=== PATIENT | female | born 1940 | race Caucasian/White ===

== ENCOUNTER 2021-06-08 14:13 | Emergency (ER) | payer OTHER ==
[~2021-06-08] VITALS: Ht 167.6 cm; Wt 59.0 kg
[2021-06-08 15:56] LABS: Urine Bacteria NONE SEEN /hpf (None Seen); Urine Blood Negative /uL (Negative); Urine Specific Gravity 1.012 (1.001-1.035); Urine WBC 4 /hpf (0 - 5)
[2021-06-08 16:24] LABS: Basophils # (auto) 0.1 10 ^3/uL (0-0.2); Basophils % (auto) 0.7 % (0.0-2.0); Eosinophils # (auto) 0.7 10 ^3/uL (0-0.8); Eosinophils % (auto) 8.8 % (0.0-7.0); Hematocrit 40.7 % (36.0-46.0); Hemoglobin 13.3 g/dL (12.2-16.2); Lymphocytes % (auto) 24.4 % (10.0-50.0); Mean Corpuscular Hemoglobin 30.8 pg (28.0-32.0); Mean Corpuscular Hgb Conc. 32.7 g/dL (32.0-36.0); Mean Corpuscular Volume 94.2 fL (80.0-100.0); Monocytes # (auto) 1.1 10 ^3/uL (0-1.3); Monocytes % (auto) 13.2 % (0.0-12.0); Neutrophils # (auto) 4.4 10 ^3/uL (1.6-8.6); Neutrophils % (auto) 52.9 % (37.0-80.0); Nucleated Red Blood Cells % 0.1 %; Red Blood Cells 4.32 10^6/uL (4.0-5.20); Red Cell Distribution Width 15.6 % (11.8-14.3); White Blood Cell 8.2 10^3/uL (4.4-10.8)
[2021-06-08 16:49] LABS: Calcium 9.5 mg/dL (8.5-10.1); Potassium 5.1 mmol/L (3.5-5.1)
[2021-06-08 16:53] LABS: Albumin 3.5 g/dL (3.4-5.0); BUN/Creatinine Ratio 21.2
[2021-06-08 16:59] LABS: Bilirubin, Total 0.5 mg/dL (0.2-1.0); Total Protein 7.3 g/dL (6.4-8.2)
[2021-06-09 04:07] VITALS: BP 139/63
[2021-06-11] MEDS ORDERED: ACET650S12 RE (11:17)
[2021-06-11] MEDS ORDERED: LEVO25TA49 PO (11:17)
[2021-06-11] MEDS ORDERED: AMLO-496 PO (11:17)
[2021-06-11] MEDS ORDERED: FURO20TA3 PO (11:17)
[2021-06-11] MEDS ORDERED: ATOR40TA52 PO (11:17)
[2021-06-11] MEDS ORDERED: CARV6.2551 PO (11:17)
[2021-06-11] MEDS ORDERED: ALEN70TA74 PO (11:17)
[2021-06-11] MEDS ORDERED: LOSA-69 PO (11:17)
== END 2021-06-09 05:46 | disposition home or self-care (01) ==
LOC: ER 14:13
DX: L01.00 Impetigo, unspecified (principal); I10 Essential (primary) hypertension; Z90.49 Acquired absence of other specified parts of digestive tract; Z20.822 Contact with and (suspected) exposure to COVID-19
CPT/HCPCS: 36415; 71045; 80053; 81001; 83880; 85025; 87426; 93005

== ENCOUNTER 2021-06-17 08:18 | Inpatient (IN) | payer OTHER ==
[~2021-06-17] VITALS: Ht 165.1 cm; Wt 73.5 kg
[~2021-06-17 08:18] MED LIST: ACET650S12 RE; ALEN70TA74 PO; AMLO-496 PO; ATOR40TA52 PO; CARV6.2551 PO; FURO20TA3 PO; LEVO25TA49 PO; LOSA-69 PO
[2021-06-17] MEDS ORDERED: TRANEXAMIC ACID 20 ML ONE (08:42)
[2021-06-17] MEDS ORDERED: EPINEPHrine HCL 1 MG/1 ML AMP ONE ×2 (08:43→09:25)
[2021-06-17] MEDS ORDERED: ceFAZolin 1GM/50ML 100 ML IV ONE (08:49)
[2021-06-17] MEDS ORDERED: MORPHINE SULF PF 2 MG/2 ML SYRG ONE (09:24)
[2021-06-17] MEDS ORDERED: MIDAZOLAM HCL 2MG/2ML 2ml VIAL (1mg/ml) ONE (09:25)
[2021-06-17] MEDS ORDERED: PROPOFOL 10 MG/ML 20 ML IV ONE ×3 (09:25→12:46)
[2021-06-17] MEDS ORDERED: fentaNYL CITRATE 100 MCG/2 ML VL ONE (09:25)
[2021-06-17] MEDS ORDERED: ONDANSETRON HCL 4 MG/2 ML VIAL ONE (09:25)
[2021-06-17] MEDS ORDERED: BUPIVACAINE/DEXTROSE MPF 0.75% 2 ML AMP IT ONE (09:25)
[2021-06-17] MEDS ORDERED: TETRACAINE 1% INJ 2 ML VIAL IJ ONE (09:57)
[2021-06-17] MEDS ORDERED: MORPHINE SULFATE 4 MG/ML SYR/VIAL IV PRN (12:15)
[2021-06-17] MEDS ORDERED: METOCLOPRAMIDE HCL 5MG/ml INJ 2ml VIAL IV PRN (12:15)
[2021-06-17] MEDS ORDERED: HYDROmorphone HCL 2 MG/ML VL IV PRN ×2 (12:15→13:45)
[2021-06-17] MEDS ORDERED: NALOXONE HCL 0.4 MG/ML VIAL IV PRN (12:15)
[2021-06-17] MEDS: VANCOMYCIN HCL 1000 MG VL ONE ×2 (12:30→14:35)
[2021-06-17] MEDS ORDERED: oxyCODONE HCL 5MG TAB PO PRN ×2 (13:45)
[2021-06-17] MEDS ORDERED: ceFAZolin 2 GM in D5W 5% 100 ML IV SCH (14:00)
[2021-06-17 17:22] VITALS: BP 120/57
[2021-06-17] MEDS ORDERED: ONDANSETRON HCL 4 MG/2 ML VIAL IV PRN (17:30)
[2021-06-17] MEDS: LOSARTAN POTASSIUM 50 MG TAB PO SCH (18:00)
[2021-06-17 19:00] VITALS: BP 109/73
[2021-06-17] MEDS: D5W/LACTATED RINGERS 1,000 ML IV SCH (19:39)
[2021-06-17] MEDS: KETOROLAC TROMETH 30 MG/ML 1ML VIAL IV SCH (19:40)
[2021-06-17] MEDS: diphenhdrAMINE HCL 50 MG/1 ML VL IV PRN (19:41)
[2021-06-17] MEDS: ACETAMINOPHEN 325 MG TAB PO SCH (19:41)
[2021-06-17 20:00] VITALS: BP 105/75
[2021-06-17 21:00] VITALS: BP 112/58
[2021-06-17 22:00] VITALS: BP_SYST 112; BP_SYST 126; BP_DIAS 58; BP_DIAS 59
[2021-06-17] MEDS: CARVEDILOL 3.125 MG TAB PO SCH (22:20)
[2021-06-17] MEDS: PREGABALIN 25 MG CAP PO SCH (22:21)
[2021-06-17] MEDS: ATORVASTATIN 20 MG TAB PO SCH (22:21)
[2021-06-17 23:00] VITALS: BP 110/62
[2021-06-18] VITALS (16 sets, daily range): BP systolic 103–142; BP diastolic 46–81
[2021-06-18] MEDS ORDERED: diphenhdrAMINE HCL 50 MG/1 ML VL ONE (01:37)
[2021-06-18] MEDS: KETOROLAC TROMETH 30 MG/ML 1ML VIAL IV SCH ×4 (01:55→18:45)
[2021-06-18] MEDS: D5W/LACTATED RINGERS 1,000 ML IV SCH ×3 (01:56→21:26)
[2021-06-18] MEDS: ACETAMINOPHEN 325 MG TAB PO SCH ×4 (01:56→18:45)
[2021-06-18 06:08] LABS: Basophils # (auto) 0 10 ^3/uL (0-0.2); Basophils % (auto) 0.1 % (0.0-2.0); Eosinophils # (auto) 0 10 ^3/uL (0-0.8); Hematocrit 32.3 % (36.0-46.0); Hemoglobin 10.8 g/dL (12.2-16.2); Lymphocytes # (auto) 0.7 10 ^3/uL (0.4-5.4); Mean Corpuscular Hemoglobin 31.3 pg (28.0-32.0); Mean Corpuscular Hgb Conc. 33.3 g/dL (32.0-36.0); Mean Corpuscular Volume 93.8 fL (80.0-100.0); Monocytes # (auto) 0.8 10 ^3/uL (0-1.3); Monocytes % (auto) 10.7 % (0.0-12.0); Neutrophils # (auto) 6.2 10 ^3/uL (1.6-8.6); Neutrophils % (auto) 80.2 % (37.0-80.0); Red Blood Cells 3.44 10^6/uL (4.0-5.20); Red Cell Distribution Width 15.4 % (11.8-14.3); White Blood Cell 7.7 10^3/uL (4.4-10.8)
[2021-06-18 06:24] LABS: BUN/Creatinine Ratio 20.3; Calcium 8.2 mg/dL (8.5-10.1); Potassium 4.6 mmol/L (3.5-5.1)
[2021-06-18] MEDS: LEVOTHYROXINE SODIUM 100 MCG TAB PO SCH (06:35)
[2021-06-18] MEDS ORDERED: ceFAZolin 2 GM in D5W 5% 100 ML IV ONE (08:15)
[2021-06-18] MEDS: CARVEDILOL 3.125 MG TAB PO SCH ×2 (10:00→21:28)
[2021-06-18] MEDS: amLODIPine BESYLATE 5 MG TAB PO SCH (10:00)
[2021-06-18] MEDS: FUROSEMIDE 20 MG TAB PO SCH (10:01)
[2021-06-18] MEDS: ASPirin 81 mg TAB PO SCH ×2 (10:01→22:00)
[2021-06-18] MEDS: PREGABALIN 25 MG CAP PO SCH ×2 (10:02→21:28)
[2021-06-18] MEDS ORDERED: ceFAZolin 2 GM in D5W 5% 100 ML IV SCH (14:00)
[2021-06-18] MEDS: LOSARTAN POTASSIUM 50 MG TAB PO SCH (18:00)
[2021-06-18] MEDS: ATORVASTATIN 20 MG TAB PO SCH (21:28)
[2021-06-18] MEDS: diphenhdrAMINE HCL 50 MG/1 ML VL IV PRN (21:28)
[2021-06-19] MEDS: ACETAMINOPHEN 325 MG TAB PO SCH ×5 (00:26→23:48)
[2021-06-19] MEDS: KETOROLAC TROMETH 30 MG/ML 1ML VIAL IV SCH ×5 (00:26→23:48)
[2021-06-19 05:00] VITALS: BP 111/58
[2021-06-19] MEDS: D5W/LACTATED RINGERS 1,000 ML IV SCH ×2 (05:34→16:11)
[2021-06-19] MEDS: LEVOTHYROXINE SODIUM 100 MCG TAB PO SCH (06:32)
[2021-06-19 09:00] VITALS: BP 112/55
[2021-06-19] MEDS: ASPirin 81 mg TAB PO SCH ×2 (10:00→21:45)
[2021-06-19] MEDS: FUROSEMIDE 20 MG TAB PO SCH (10:00)
[2021-06-19] MEDS: CARVEDILOL 3.125 MG TAB PO SCH ×3 (10:00→22:40)
[2021-06-19] MEDS: PREGABALIN 25 MG CAP PO SCH ×2 (10:00→21:45)
[2021-06-19] MEDS: amLODIPine BESYLATE 5 MG TAB PO SCH (10:00)
[2021-06-19 13:00] VITALS: BP 111/56
[2021-06-19 17:00] VITALS: BP 142/74
[2021-06-19] MEDS: LOSARTAN POTASSIUM 50 MG TAB PO SCH (17:16)
[2021-06-19 21:30] VITALS: BP 120/54
[2021-06-19] MEDS: ATORVASTATIN 20 MG TAB PO SCH (21:45)
[2021-06-20] MEDS: D5W/LACTATED RINGERS 1,000 ML IV SCH ×2 (04:04→11:52)
[2021-06-20 06:00] VITALS: BP 149/60
[2021-06-20] MEDS: KETOROLAC TROMETH 30 MG/ML 1ML VIAL IV SCH ×3 (06:00→16:17)
[2021-06-20] MEDS: ACETAMINOPHEN 325 MG TAB PO SCH ×3 (06:30→16:17)
[2021-06-20] MEDS: LEVOTHYROXINE SODIUM 100 MCG TAB PO SCH (07:25)
[2021-06-20 09:00] VITALS: BP 139/54
[2021-06-20] MEDS: ASPirin 81 mg TAB PO SCH (09:26)
[2021-06-20] MEDS: PREGABALIN 25 MG CAP PO SCH (09:27)
[2021-06-20] MEDS: CARVEDILOL 3.125 MG TAB PO SCH (09:27)
[2021-06-20] MEDS: FUROSEMIDE 20 MG TAB PO SCH (09:27)
[2021-06-20] MEDS: amLODIPine BESYLATE 5 MG TAB PO SCH (09:28)
[2021-06-20 13:00] VITALS: BP 131/60
[2021-06-20 16:28] VITALS: BP 149/60
[2021-06-20 17:00] VITALS: BP 168/75
[2021-06-20] MEDS: LOSARTAN POTASSIUM 50 MG TAB PO SCH (18:00)
== END 2021-06-20 20:36 | DRG 470 ==
LOC: SUR 08:18 → TELE 13:31 → TELE-WESTW 17:12
PROVIDERS: ADMIT Orthopaedic Surgery; ATTEND Orthopaedic Surgery
PROC: 8E0YXBZ Computer Assisted Procedure of Lower Extremity (ICD-10-PCS; 2021-06-17)
PROC: 0SRC069 Replacement of Right Knee Joint with Oxidized Zirconium on Polyethylene Synthetic Substitute, Cemented, Open Approach (ICD-10-PCS; principal; 2021-06-17 10:34)
DX: M17.11 Unilateral primary osteoarthritis, right knee (principal); M81.0 Age-related osteoporosis without current pathological fracture; I10 Essential (primary) hypertension; Z20.822 Contact with and (suspected) exposure to COVID-19; E78.5 Hyperlipidemia, unspecified; Z82.49 Family history of ischemic heart disease and other diseases of the circulatory system; E03.9 Hypothyroidism, unspecified
CPT/HCPCS: 36415; 73562; 80048; 85025; 86850; 86900; 86901; 97110; 97116; 97163; 97530; G0378; J0171; J0690; J1885; J2250; J2405; J2704; J7060

== ENCOUNTER 2021-06-27 19:49 | Inpatient (IN) | payer OTHER ==
[~2021-06-27] VITALS: Ht 162.6 cm; Wt 70.3 kg
[2021-06-27 21:15] LABS: Hematocrit 15.8 % (36.0-46.0); Mean Corpuscular Hgb Conc. 32.5 g/dL (32.0-36.0); Mean Corpuscular Volume 95.5 fL (80.0-100.0); Red Blood Cells 1.65 10^6/uL (4.0-5.20); Red Cell Distribution Width 16.1 % (11.8-14.3); White Blood Cell 22.2 10^3/uL (4.4-10.8)
[2021-06-27 21:25] LABS: Albumin 2.1 g/dL (3.4-5.0); Calcium 7.6 mg/dL (8.5-10.1); INR 1.1 (0.9-1.15); Partial Thromboplastin Time 28.5 sec (23.6-33.0); Potassium 4.3 mmol/L (3.5-5.1)
[2021-06-27 21:27] LABS: Hemoglobin 5.1 g/dL (12.2-16.2)
[2021-06-27 21:28] LABS: Basophils % (manual) 0 (0.0-2.0); Blast Cells 0; Eosinophils % (manual) 0 (0-7); Myelocytes % 0; Promyelocytes % 0; Reactive Lymphocytes 0
[2021-06-27 21:31] LABS: BUN/Creatinine Ratio 36.1; Bilirubin, Total 0.4 mg/dL (0.2-1.0); Total Protein 5.4 g/dL (6.4-8.2)
[2021-06-27] MEDS ORDERED: PANTOPRAZOLE 40 MG/10 ML VIAL INJ IV ONE (21:45)
[2021-06-27] MEDS ORDERED: ONDANSETRON HCL 4 MG/2 ML VIAL IV ONE (21:45)
[2021-06-27 23:05] LABS: Band Neutrophils % (manual) 1; Lymphocytes % (manual) 21 (10.0-50.0); Metamyelocytes % 1; Monocytes % (manual) 5 (0-12)
[2021-06-27] MEDS ORDERED: ACETAMINOPHEN 325 MG TAB PO PRN (23:15)
[2021-06-27] MEDS ORDERED: HYDROcodone-ACET 5/325MG TAB PO PRN (23:15)
[2021-06-27] MEDS ORDERED: SODIUM CHLORIDE 0.9% 1,000 ML IV SCH (23:15)
[2021-06-27] MEDS ORDERED: DOCUSATE SOD 100 MG CAP PO PRN (23:15)
[2021-06-27] MEDS ORDERED: ONDANSETRON HCL 4 MG/2 ML VIAL IV PRN (23:15)
[2021-06-27] MEDS ORDERED: NITROGLYCERIN 0.4 MG SL TAB SL PRN (23:30)
[2021-06-27] MEDS ORDERED: MORPHINE SULFATE INJECTION 2 MG/ML SYRG IV PRN (23:30)
[2021-06-28] VITALS (13 sets, daily range): BP systolic 103–127; BP diastolic 35–54
[2021-06-28] MEDS ORDERED: cefTRIAXone 1GM/50ML D5W 50 ML IV ONE (02:00)
[2021-06-28 05:43] LABS: Hematocrit 18.1 % (36.0-46.0); Mean Corpuscular Hgb Conc. 32.5 g/dL (32.0-36.0); Red Blood Cells 1.93 10^6/uL (4.0-5.20); Red Cell Distribution Width 14.4 % (11.8-14.3)
[2021-06-28 05:46] LABS: Mean Corpuscular Hemoglobin 30.6 pg (28.0-32.0); White Blood Cell 26.5 10^3/uL (4.4-10.8)
[2021-06-28 05:52] LABS: Potassium 4.2 mmol/L (3.5-5.1)
[2021-06-28 05:57] LABS: Albumin 1.8 g/dL (3.4-5.0); BUN/Creatinine Ratio 38.2; Calcium 6.8 mg/dL (8.5-10.1)
[2021-06-28 06:00] LABS: Bilirubin, Total 0.3 mg/dL (0.2-1.0); Total Protein 4.2 g/dL (6.4-8.2)
[2021-06-28 06:20] LABS: Hemoglobin 5.9 g/dL (12.2-16.2)
[2021-06-28 06:21] LABS: Basophils % (manual) 0 (0.0-2.0); Blast Cells 0; Eosinophils % (manual) 0 (0-7); Metamyelocytes % 0; Myelocytes % 0; Promyelocytes % 0; Reactive Lymphocytes 0
[2021-06-28 08:56] LABS: Band Neutrophils % (manual) 1; Lymphocytes % (manual) 13 (10.0-50.0); Monocytes % (manual) 4 (0-12)
[2021-06-28] MEDS: MULTIPLE VITAMIN TAB PO SCH (09:47)
[2021-06-28] MEDS ORDERED: ASCORBIC ACID 500 MG TAB PO SCH (10:00)
[2021-06-28] MEDS ORDERED: ASPirin 81 mg TAB PO SCH (10:00)
[2021-06-28] MEDS ORDERED: FAMOTIDINE (10MG/ML) 2ML VL IV SCH (10:00)
[2021-06-28] MEDS ORDERED: ZINC SULFATE 220mg CAP or TAB PO SCH (10:00)
[2021-06-28] MEDS ORDERED: HEPARIN SODIUM (PORCINE) 5000 UNITS/ML 1ML VIAL SC SCH (10:00)
[2021-06-28] MEDS ORDERED: PANTOPRAZOLE 40mg/50ML NS AE 50 ML IV SCH (10:30)
[2021-06-28] MEDS: SUCRALFATE 1 GM/10 ML ORAL SUSP PO SCH ×4 (11:00→21:30)
[2021-06-28] MEDS: PANTOPRAZOLE 40 MG/10 ML VIAL INJ IV SCH ×2 (11:32→21:30)
[2021-06-28 12:40] LABS: Urine Bacteria FEW /hpf (None Seen); Urine Blood TRACE /uL (Negative); Urine Budding Yeast FEW /hpf (None Seen); Urine Hyaline Cast FEW /lpf (0 - 2); Urine Specific Gravity 1.014 (1.001-1.035); Urine WBC 419 /hpf (0 - 5); Urine WBC Clumps PRESENT /hpf (None Seen)
[2021-06-28 14:47] LABS: Hematocrit 21.3 % (36.0-46.0); Hemoglobin 7.1 g/dL (12.2-16.2)
[2021-06-29] VITALS (17 sets, daily range): BP systolic 102–127; BP diastolic 33–61
[2021-06-29 05:55] LABS: Hematocrit 16.2 % (36.0-46.0)
[2021-06-29 05:58] LABS: Mean Corpuscular Hemoglobin 32.5 pg (28.0-32.0); Mean Corpuscular Hgb Conc. 34.7 g/dL (32.0-36.0); Mean Corpuscular Volume 93.6 fL (80.0-100.0); Red Blood Cells 1.73 10^6/uL (4.0-5.20); Red Cell Distribution Width 14.8 % (11.8-14.3)
[2021-06-29 06:02] LABS: Hemoglobin 5.6 g/dL (12.2-16.2); White Blood Cell 30.8 10^3/uL (4.4-10.8)
[2021-06-29 06:04] LABS: Basophils % (manual) 0 (0.0-2.0); Blast Cells 0; Eosinophils % (manual) 0 (0-7); Metamyelocytes % 0; Myelocytes % 0; Promyelocytes % 0; Reactive Lymphocytes 0
[2021-06-29 06:07] LABS: Calcium 6.7 mg/dL (8.5-10.1); Potassium 3.9 mmol/L (3.5-5.1)
[2021-06-29 06:08] LABS: INR 0.99 (0.9-1.15); Partial Thromboplastin Time 23.1 sec (23.6-33.0)
[2021-06-29 06:09] LABS: BUN/Creatinine Ratio 50.6
[2021-06-29] MEDS: SUCRALFATE 1 GM/10 ML ORAL SUSP PO SCH ×4 (06:58→20:52)
[2021-06-29 07:47] LABS: Band Neutrophils % (manual) 7; Lymphocytes % (manual) 10 (10.0-50.0); Monocytes % (manual) 3 (0-12)
[2021-06-29] MEDS: cefTRIAXone 1GM/50ML D5W 50 ML IV SCH (09:03)
[2021-06-29] MEDS: MULTIPLE VITAMIN TAB PO SCH (09:43)
[2021-06-29] MEDS: PANTOPRAZOLE 40 MG/10 ML VIAL INJ IV SCH (09:43)
[2021-06-29 11:00] LABS: Hematocrit 19.9 % (36.0-46.0)
[2021-06-29 11:31] LABS: Hemoglobin 6.7 g/dL (12.2-16.2)
[2021-06-29] MEDS ORDERED: PANTOPRAZOLE 40mg/50ML NS AE 50 ML IV SCH (14:30)
[2021-06-29] MEDS: PANTOPRAZOLE 40mg/50ML NS AE 50 ML IV SCH ×2 (14:55→20:52)
[2021-06-29 16:32] LABS: Basophils # (auto) 0.1 10 ^3/uL (0-0.2); Basophils % (auto) 0.4 % (0.0-2.0); Eosinophils # (auto) 0.3 10 ^3/uL (0-0.8); Eosinophils % (auto) 1.3 % (0.0-7.0); Hematocrit 25.5 % (36.0-46.0); Hemoglobin 8.6 g/dL (12.2-16.2); Lymphocytes # (auto) 1.9 10 ^3/uL (0.4-5.4); Lymphocytes % (auto) 8.4 % (10.0-50.0); Mean Corpuscular Hemoglobin 30.8 pg (28.0-32.0); Mean Corpuscular Hgb Conc. 33.8 g/dL (32.0-36.0); Mean Corpuscular Volume 91.2 fL (80.0-100.0); Monocytes # (auto) 1.3 10 ^3/uL (0-1.3); Monocytes % (auto) 5.7 % (0.0-12.0); Neutrophils # (auto) 19.5 10 ^3/uL (1.6-8.6); Neutrophils % (auto) 84.2 % (37.0-80.0); Nucleated Red Blood Cells % 0.1 %; Red Blood Cells 2.79 10^6/uL (4.0-5.20); Red Cell Distribution Width 15.2 % (11.8-14.3); White Blood Cell 23.1 10^3/uL (4.4-10.8)
[2021-06-29 16:47] LABS: Albumin 1.8 g/dL (3.4-5.0); Calcium 6.9 mg/dL (8.5-10.1); Potassium 3.7 mmol/L (3.5-5.1)
[2021-06-29 16:55] LABS: % Iron Saturation 47.8 % (15-50)
[2021-06-29 16:57] LABS: BUN/Creatinine Ratio 46.5; Bilirubin, Total 0.6 mg/dL (0.2-1.0); CRP High Sensitivity 2.35 mg/dL (< 0.3); Pre Albumin 9.3 mg/dL (20.0-40.0); Total Protein 4.2 g/dL (6.4-8.2)
[2021-06-29 16:58] LABS: Ferritin 197.6 ng/mL (10-322)
[2021-06-29 17:01] LABS: Thyroid Stimulating Hormone 11.2 uIU/mL (0.358-3.74)
[2021-06-29 20:27] LABS: Lactic Acid w/Reflex 2.7 mmol/L (0.4-2.0)
[2021-06-29] MEDS: OCTREOTIDE ACETATE 100 MCG/ML VL SUBCUT SCH (20:54)
[2021-06-30] MEDS: PANTOPRAZOLE 40mg/50ML NS AE 50 ML IV SCH ×2 (02:56→12:08)
[2021-06-30 05:00] VITALS: BP 126/53
[2021-06-30] MEDS: OCTREOTIDE ACETATE 100 MCG/ML VL SUBCUT SCH ×3 (05:19→21:12)
[2021-06-30] MEDS: SUCRALFATE 1 GM/10 ML ORAL SUSP PO SCH ×4 (05:21→21:12)
[2021-06-30 06:05] LABS: Basophils # (auto) 0.1 10 ^3/uL (0-0.2); Basophils % (auto) 0.9 % (0.0-2.0); Eosinophils # (auto) 0.8 10 ^3/uL (0-0.8); Eosinophils % (auto) 5.6 % (0.0-7.0); Hematocrit 26.7 % (36.0-46.0); Hemoglobin 9.2 g/dL (12.2-16.2); Lymphocytes # (auto) 1.6 10 ^3/uL (0.4-5.4); Lymphocytes % (auto) 11.3 % (10.0-50.0); Mean Corpuscular Hemoglobin 31.1 pg (28.0-32.0); Mean Corpuscular Hgb Conc. 34.4 g/dL (32.0-36.0); Mean Corpuscular Volume 90.5 fL (80.0-100.0); Monocytes # (auto) 1.1 10 ^3/uL (0-1.3); Monocytes % (auto) 7.8 % (0.0-12.0); Neutrophils # (auto) 10.5 10 ^3/uL (1.6-8.6); Neutrophils % (auto) 74.4 % (37.0-80.0); Nucleated Red Blood Cells % 0.1 %; Red Blood Cells 2.95 10^6/uL (4.0-5.20); Red Cell Distribution Width 15.6 % (11.8-14.3); White Blood Cell 14.1 10^3/uL (4.4-10.8)
[2021-06-30 06:24] LABS: BUN/Creatinine Ratio 42.4; Calcium 7.2 mg/dL (8.5-10.1); Potassium 3.9 mmol/L (3.5-5.1)
[2021-06-30 08:00] VITALS: BP 116/49
[2021-06-30] MEDS ORDERED: LIDOCAINE VISCOUS 2% 15ML UD ONE (09:04)
[2021-06-30] MEDS ORDERED: MIDAZOLAM HCL 5 MG/ML-1ML VIAL ONE (09:05)
[2021-06-30] MEDS ORDERED: diphenhdrAMINE HCL 50 MG/1 ML VL ONE (09:05)
[2021-06-30] MEDS ORDERED: fentaNYL CITRATE 100 MCG/2 ML VL ONE (09:05)
[2021-06-30] MEDS ORDERED: SODIUM CHLORIDE 0.9% 1,000 ML IV SCH (09:15)
[2021-06-30] MEDS: cefTRIAXone 1GM/50ML D5W 50 ML IV SCH (10:00)
[2021-06-30] MEDS: MULTIPLE VITAMIN TAB PO SCH (10:01)
[2021-06-30 11:00] LABS: Free T4 (Free Thyroxine) 0.7 ng/dL (0.89-1.76)
[2021-06-30 11:01] LABS: Folate (Folic Acid) 8.11 ng/mL (5.38-24)
[2021-06-30 17:00] VITALS: BP 136/55
[2021-06-30] MEDS: PANTOPRAZOLE 40 MG TAB PO SCH (21:10)
[2021-06-30 23:13] VITALS: BP 131/55
[2021-07-01 05:00] VITALS: BP 138/65
[2021-07-01] MEDS: OCTREOTIDE ACETATE 100 MCG/ML VL SUBCUT SCH ×3 (06:02→21:56)
[2021-07-01] MEDS: SUCRALFATE 1 GM/10 ML ORAL SUSP PO SCH ×4 (06:02→21:56)
[2021-07-01 06:47] LABS: Basophils # (auto) 0.1 10 ^3/uL (0-0.2); Basophils % (auto) 0.9 % (0.0-2.0); Eosinophils # (auto) 0.7 10 ^3/uL (0-0.8); Eosinophils % (auto) 9.8 % (0.0-7.0); Hematocrit 25.6 % (36.0-46.0); Hemoglobin 8.7 g/dL (12.2-16.2); Lymphocytes # (auto) 1.3 10 ^3/uL (0.4-5.4); Lymphocytes % (auto) 18.3 % (10.0-50.0); Mean Corpuscular Hemoglobin 31.6 pg (28.0-32.0); Mean Corpuscular Hgb Conc. 34.1 g/dL (32.0-36.0); Mean Corpuscular Volume 92.5 fL (80.0-100.0); Monocytes # (auto) 0.9 10 ^3/uL (0-1.3); Monocytes % (auto) 12.8 % (0.0-12.0); Neutrophils % (auto) 58.2 % (37.0-80.0); Nucleated Red Blood Cells % 0.2 %; Red Blood Cells 2.77 10^6/uL (4.0-5.20); Red Cell Distribution Width 16.2 % (11.8-14.3); White Blood Cell 6.9 10^3/uL (4.4-10.8)
[2021-07-01 06:51] LABS: BUN/Creatinine Ratio 27.8; Calcium 7.7 mg/dL (8.5-10.1); Potassium 4.1 mmol/L (3.5-5.1)
[2021-07-01 08:00] VITALS: BP 136/63
[2021-07-01] MEDS: MULTIPLE VITAMIN TAB PO SCH (09:01)
[2021-07-01] MEDS: PANTOPRAZOLE 40 MG TAB PO SCH ×2 (09:01→21:56)
[2021-07-01 12:00] VITALS: BP 135/63
[2021-07-01 17:00] VITALS: BP 145/72
[2021-07-01 22:00] VITALS: BP 136/93
[2021-07-01] MEDS: CARVEDILOL 3.125 MG TAB PO SCH (22:08)
[2021-07-02 05:00] VITALS: BP 142/63
[2021-07-02] MEDS: OCTREOTIDE ACETATE 100 MCG/ML VL SUBCUT SCH (05:43)
[2021-07-02] MEDS: SUCRALFATE 1 GM/10 ML ORAL SUSP PO SCH ×4 (06:00→22:58)
[2021-07-02 07:06] LABS: BUN/Creatinine Ratio 18.6; Calcium 7.8 mg/dL (8.5-10.1)
[2021-07-02 09:00] VITALS: BP 134/65
[2021-07-02] MEDS: MULTIPLE VITAMIN TAB PO SCH (09:16)
[2021-07-02] MEDS: PANTOPRAZOLE 40 MG TAB PO SCH ×2 (09:16→23:01)
[2021-07-02] MEDS: CARVEDILOL 3.125 MG TAB PO SCH ×2 (09:16→23:00)
[2021-07-02 12:45] VITALS: BP 122/61
[2021-07-02 16:59] VITALS: BP 156/68
[2021-07-02 22:00] VITALS: BP 144/76
[2021-07-03 05:00] VITALS: BP 140/61
[2021-07-03] MEDS: SUCRALFATE 1 GM/10 ML ORAL SUSP PO SCH ×4 (06:57→21:24)
[2021-07-03 09:00] VITALS: BP 147/73
[2021-07-03] MEDS: PANTOPRAZOLE 40 MG TAB PO SCH ×2 (10:14→21:23)
[2021-07-03] MEDS: MULTIPLE VITAMIN TAB PO SCH (10:14)
[2021-07-03] MEDS: CARVEDILOL 3.125 MG TAB PO SCH ×2 (10:15→22:30)
[2021-07-03 13:00] VITALS: BP 134/66
[2021-07-03 17:00] VITALS: BP 141/64
[2021-07-04 05:00] VITALS: BP 153/64
[2021-07-04] MEDS: SUCRALFATE 1 GM/10 ML ORAL SUSP PO SCH ×3 (06:45→16:53)
[2021-07-04] MEDS ORDERED: LEVOTHYROXINE SODIUM 25 MCG TAB PO SCH (07:00)
[2021-07-04 09:00] VITALS: BP 144/64
[2021-07-04] MEDS: CARVEDILOL 3.125 MG TAB PO SCH (09:59)
[2021-07-04] MEDS: MULTIPLE VITAMIN TAB PO SCH (09:59)
[2021-07-04] MEDS: PANTOPRAZOLE 40 MG TAB PO SCH (09:59)
[2021-07-04 13:00] VITALS: BP 134/64
[2021-07-04 17:00] VITALS: BP 146/74
== END 2021-07-04 18:48 | DRG 378 ==
LOC: ER 19:49 → EDBD 19:49 → OVERFLOW 23:24 → CENTRAL 06-28 05:43
PROVIDERS: ADMIT Nurse Practitioner Family; ATTEND Hospitalist
PROC: 30233N1 Transfusion of Nonautologous Red Blood Cells into Peripheral Vein, Percutaneous Approach (ICD-10-PCS; 2021-06-28)
PROC: 0DB68ZX Excision of Stomach, Via Natural or Artificial Opening Endoscopic, Diagnostic (ICD-10-PCS; principal; 2021-06-30 13:40)
DX: K26.4 Chronic or unspecified duodenal ulcer with hemorrhage (principal); E87.1 Hypo-osmolality and hyponatremia; N17.9 Acute kidney failure, unspecified; D64.9 Anemia, unspecified; E88.09 Other disorders of plasma-protein metabolism, not elsewhere classified; D75.839 Thrombocytosis, unspecified; N18.31 Chronic kidney disease, stage 3a; I12.9 Hypertensive chronic kidney disease with stage 1 through stage 4 chronic kidney disease, or unspecified chronic kidney disease; K25.4 Chronic or unspecified gastric ulcer with hemorrhage; D72.829 Elevated white blood cell count, unspecified; K29.80 Duodenitis without bleeding; Z96.651 Presence of right artificial knee joint; Z20.822 Contact with and (suspected) exposure to COVID-19; Z85.3 Personal history of malignant neoplasm of breast; Z79.01 Long term (current) use of anticoagulants; Z82.49 Family history of ischemic heart disease and other diseases of the circulatory system; Z79.899 Other long term (current) drug therapy; Z90.49 Acquired absence of other specified parts of digestive tract
CPT/HCPCS: 36415; 43239; 71045; 78582; 80048; 80053; 81001; 82040; 82607; 82668; 82728; 82746; 83010; 83036; 83540; 83550; 83605; 83615; 83880; 84439; 84443; 84484; 85007; 85014; 85018; 85025; 85027; 85045; 85379; 85610; 85652; 85730; 86141; 86850; 86900; 86901; 86920; 87040; 87081; 87426; 93005; 96361; 96365; 96375; 97110; 97116; 97163; C9113; G0378; J0696; J2250; J2405; J3490

== ENCOUNTER 2021-08-28 15:06 | Inpatient (IN) | payer OTHER ==
[~2021-08-28] VITALS: Ht 167.6 cm; Wt 62.9 kg
[2021-08-28] MEDS: SODIUM CHLORIDE 0.9% 1,000 ML IV SCH (00:45)
[2021-08-28] MEDS ORDERED: IOHEXOL 350 MG/ML 100ML IJ ONE (15:20)
[2021-08-28 15:56] LABS: Basophils # (auto) 0 10 ^3/uL (0-0.2); Basophils % (auto) 0.5 % (0.0-2.0); Eosinophils # (auto) 0.3 10 ^3/uL (0-0.8); Eosinophils % (auto) 4.1 % (0.0-7.0); Hematocrit 28.9 % (36.0-46.0); Hemoglobin 9.7 g/dL (12.2-16.2); Lymphocytes % (auto) 29.1 % (10.0-50.0); Mean Corpuscular Hemoglobin 29.7 pg (28.0-32.0); Mean Corpuscular Hgb Conc. 33.4 g/dL (32.0-36.0); Mean Corpuscular Volume 88.9 fL (80.0-100.0); Monocytes # (auto) 0.8 10 ^3/uL (0-1.3); Monocytes % (auto) 10.8 % (0.0-12.0); Neutrophils # (auto) 3.9 10 ^3/uL (1.6-8.6); Neutrophils % (auto) 55.5 % (37.0-80.0); Red Blood Cells 3.25 10^6/uL (4.0-5.20); Red Cell Distribution Width 18.4 % (11.8-14.3)
[2021-08-28 16:15] LABS: Albumin 2.7 g/dL (3.4-5.0); BUN/Creatinine Ratio 14.9; Potassium 3.7 mmol/L (3.5-5.1)
[2021-08-28 16:17] LABS: INR 1.01 (0.9-1.15)
[2021-08-28 16:18] LABS: Bilirubin, Total 0.3 mg/dL (0.2-1.0); Total Protein 6.5 g/dL (6.4-8.2)
[2021-08-28] MEDS ORDERED: ACETAMINOPHEN 325 MG TAB PO PRN (19:30)
[2021-08-28] MEDS ORDERED: MORPHINE SULFATE INJECTION 2 MG/ML SYRG IV PRN (19:30)
[2021-08-28] MEDS ORDERED: HEPARIN DRIP/D5W 100UNITS/ML 250 ML IV SCH (19:30)
[2021-08-28] MEDS ORDERED: SUCRALFATE 1 GM TAB PO ONE (19:30)
[2021-08-28] MEDS ORDERED: NITROGLYCERIN 0.4 MG SL TAB SL PRN (19:30)
[2021-08-28] MEDS ORDERED: traMADol HCL 50 MG TAB PO PRN (19:30)
[2021-08-28] MEDS ORDERED: PANTOPRAZOLE 40 MG/10 ML VIAL INJ IV ONE (19:30)
[2021-08-28 21:25] LABS: INR 0.97 (0.9-1.15); Partial Thromboplastin Time 23.6 sec (23.6-33.0)
[2021-08-28] MEDS ORDERED: HEPARIN SODIUM (PORCINE) 5000 UNITS/ML 1ML VIAL ONE (21:36)
[2021-08-28] MEDS ORDERED: HEPARIN SODIUM (PORCINE) 5000 UNITS/ML 1ML VIAL IV ONE (22:00)
[2021-08-29 00:32] VITALS: BP 147/68
[2021-08-29 01:01] VITALS: BP 147/68
[2021-08-29 05:26] VITALS: BP 169/73
[2021-08-29 06:08] LABS: Basophils # (auto) 0 10 ^3/uL (0-0.2); Basophils % (auto) 0.7 % (0.0-2.0); Eosinophils # (auto) 0.3 10 ^3/uL (0-0.8); Eosinophils % (auto) 6.5 % (0.0-7.0); Hematocrit 27.2 % (36.0-46.0); Hemoglobin 8.9 g/dL (12.2-16.2); Lymphocytes # (auto) 2.2 10 ^3/uL (0.4-5.4); Mean Corpuscular Hemoglobin 29.2 pg (28.0-32.0); Mean Corpuscular Hgb Conc. 32.8 g/dL (32.0-36.0); Mean Corpuscular Volume 88.9 fL (80.0-100.0); Monocytes # (auto) 0.7 10 ^3/uL (0-1.3); Monocytes % (auto) 13.6 % (0.0-12.0); Neutrophils % (auto) 37.2 % (37.0-80.0); Nucleated Red Blood Cells % 0.1 %; Red Blood Cells 3.06 10^6/uL (4.0-5.20); Red Cell Distribution Width 18.3 % (11.8-14.3); White Blood Cell 5.3 10^3/uL (4.4-10.8)
[2021-08-29 06:09] LABS: INR 0.99 (0.9-1.15); Partial Thromboplastin Time 30.2 sec (23.6-33.0)
[2021-08-29 06:12] LABS: BUN/Creatinine Ratio 16.3; Potassium 3.3 mmol/L (3.5-5.1)
[2021-08-29] MEDS ORDERED: HEPARIN SODIUM (PORCINE) 5000 UNITS/ML 1ML VIAL IV ONE (07:15)
[2021-08-29 09:00] VITALS: BP 131/63
[2021-08-29] MEDS: SUCRALFATE 1 GM TAB PO SCH ×2 (09:35→13:26)
[2021-08-29] MEDS ORDERED: PANTOPRAZOLE 40 MG/10 ML VIAL INJ IV SCH (10:00)
[2021-08-29 13:00] VITALS: BP 168/71
[2021-08-29] MEDS: SODIUM CHLORIDE 0.9% 1,000 ML IV SCH ×2 (13:27→14:10)
[2021-08-29 13:57] LABS: INR 1.02 (0.9-1.15)
[2021-08-29] MEDS ORDERED: APIXABAN 5 MG TAB PO ONE (14:00)
[2021-08-29 14:10] LABS: Partial Thromboplastin Time 116.7 sec (23.6-33.0)
[2021-08-29] MEDS ORDERED: APIX5TAB PO ×2 (14:23→14:24)
[2021-08-29] MEDS ORDERED: PANT40T PO (14:23)
[2021-08-29 17:00] VITALS: BP 165/70
[2021-09-05] MEDS ORDERED: APIXABAN 5 MG TAB PO SCH (22:00)
== END 2021-08-29 18:45 | disposition home health service (06) | DRG 300 ==
LOC: ER 15:11 → EDUNIT# 19:24 → TELE 19:24 → TELE-CENTR 22:50
PROVIDERS: ADMIT Internal Medicine; ATTEND Internal Medicine
DX: I82.411 Acute embolism and thrombosis of right femoral vein (principal); N17.9 Acute kidney failure, unspecified; I82.431 Acute embolism and thrombosis of right popliteal vein; I82.441 Acute embolism and thrombosis of right tibial vein; I10 Essential (primary) hypertension; D64.9 Anemia, unspecified; Z96.653 Presence of artificial knee joint, bilateral; F32.A Depression, unspecified; R53.81 Other malaise; E78.5 Hyperlipidemia, unspecified; E03.9 Hypothyroidism, unspecified; M81.0 Age-related osteoporosis without current pathological fracture; Z82.49 Family history of ischemic heart disease and other diseases of the circulatory system; Z86.718 Personal history of other venous thrombosis and embolism; Z88.2 Allergy status to sulfonamides; Z20.822 Contact with and (suspected) exposure to COVID-19
CPT/HCPCS: 36415; 71275; 73560; 80048; 80053; 84443; 85025; 85610; 85730; 87426; 93970; 96365; 96376; 97163; C9113; G0378

== ENCOUNTER 2022-04-29 06:41 | Inpatient (IN) | payer OTHER ==
[~2022-04-29] VITALS: Ht 167.6 cm; Wt 76.3 kg
[~2022-04-29 06:41] MED LIST changes: +APIX5TAB PO; +PANT40T PO
[2022-04-29] MEDS ORDERED: KETOROLAC TROMETH 30 MG/ML 1ML VIAL IV ONE (07:45)
[2022-04-29] MEDS ORDERED: SODIUM CHLORIDE 0.9% 1,000 ML IV ONE ×2 (07:45→17:30)
[2022-04-29] MEDS ORDERED: SODIUM CHLORIDE 0.9% 500 ML IV ONE (07:45)
[2022-04-29 07:56] LABS: Basophils # (auto) 0 10 ^3/uL (0-0.2); Basophils % (auto) 0.3 % (0.0-2.0); Eosinophils # (auto) 0 10 ^3/uL (0-0.8); Hematocrit 30.3 % (36.0-46.0); Hemoglobin 9.9 g/dL (12.2-16.2); Lymphocytes # (auto) 0.7 10 ^3/uL (0.4-5.4); Lymphocytes % (auto) 4.6 % (10.0-50.0); Mean Corpuscular Hemoglobin 32.2 pg (28.0-32.0); Mean Corpuscular Hgb Conc. 32.8 g/dL (32.0-36.0); Mean Corpuscular Volume 98.3 fL (80.0-100.0); Monocytes # (auto) 1.2 10 ^3/uL (0-1.3); Monocytes % (auto) 8.2 % (0.0-12.0); Neutrophils # (auto) 12.4 10 ^3/uL (1.6-8.6); Neutrophils % (auto) 86.9 % (37.0-80.0); Red Blood Cells 3.08 10^6/uL (4.0-5.20); Red Cell Distribution Width 15.5 % (11.8-14.3); White Blood Cell 14.3 10^3/uL (4.4-10.8)
[2022-04-29 08:11] LABS: INR 1.07 (0.9-1.15); Partial Thromboplastin Time 34.7 sec (24.6-33.4)
[2022-04-29 08:15] LABS: Albumin 2.8 g/dL (3.4-5.0); Calcium 8.1 mg/dL (8.5-10.1)
[2022-04-29 08:19] LABS: BUN/Creatinine Ratio 20.7; Bilirubin, Total 0.6 mg/dL (0.2-1.0)
[2022-04-29 08:49] LABS: Urine Bacteria FEW /hpf (None Seen); Urine Blood Negative /uL (Negative); Urine Specific Gravity 1.013 (1.001-1.035); Urine WBC <1 /hpf (0 - 5)
[2022-04-29] MEDS ORDERED: ACETAMINOPHEN 500 MG TAB PO PRN (17:30)
[2022-04-29] MEDS ORDERED: HYDROcodone-ACET 5/325MG TAB PO PRN (17:30)
[2022-04-29] MEDS ORDERED: MORPHINE SULFATE INJ 2 MG/ml SYRG IV PRN (17:30)
[2022-04-29] MEDS ORDERED: ONDANSETRON HCL 4 MG/2 ML VIAL IV PRN (17:30)
[2022-04-29] MEDS ORDERED: NITROGLYCERIN 0.4 MG SL TAB SL PRN (17:30)
[2022-04-29] MEDS ORDERED: CELECOXIB 100 MG CAP PO SCH (22:00)
[2022-04-29] MEDS: metroNIDAZOLE 500MG/100ML 100 ML IV SCH (22:09)
[2022-04-29 22:33] VITALS: BP 144/64
[2022-04-29 23:27] VITALS: BP 144/64
[2022-04-30 05:00] VITALS: BP 151/60
[2022-04-30] MEDS: metroNIDAZOLE 500MG/100ML 100 ML IV SCH ×3 (05:33→21:10)
[2022-04-30 08:55] VITALS: BP 136/95
[2022-04-30] MEDS: cefTRIAXone 1GM/50ML D5W 50 ML IV SCH (10:01)
[2022-04-30] MEDS: ENOXAPARIN SOD 30 MG/0.3 ML SYRINGE SC SCH (10:02)
[2022-04-30] MEDS: FAMOTIDINE 20 MG TAB PO SCH (10:02)
[2022-04-30 12:48] VITALS: BP 131/62
[2022-04-30 16:48] LABS: Urine Bacteria FEW /hpf (None Seen); Urine Blood 1+ /uL (Negative); Urine Specific Gravity 1.017 (1.001-1.035); Urine WBC 22 /hpf (0 - 5)
[2022-04-30 16:53] VITALS: BP 153/70
[2022-04-30 16:57] LABS: Protein, Urine 62.9 mg/dL (0.0-11.9)
[2022-04-30 22:00] VITALS: BP 154/71
[2022-05-01] MEDS: metroNIDAZOLE 500MG/100ML 100 ML IV SCH ×3 (05:20→22:03)
[2022-05-01 05:53] VITALS: BP 148/68
[2022-05-01 06:48] LABS: Calcium 7.9 mg/dL (8.5-10.1); Phosphorus 2.1 mg/dL (2.5-4.90); Potassium 3.9 mmol/L (3.5-5.1)
[2022-05-01 08:49] VITALS: BP 153/72
[2022-05-01] MEDS: cefTRIAXone 1GM/50ML D5W 50 ML IV SCH (10:24)
[2022-05-01] MEDS: ENOXAPARIN SOD 30 MG/0.3 ML SYRINGE SC SCH (10:25)
[2022-05-01 12:44] VITALS: BP 168/75
[2022-05-01 16:31] VITALS: BP 162/74
[2022-05-01] MEDS ORDERED: LOSARTAN POTASSIUM 50 MG TAB PO SCH (22:00)
[2022-05-01] MEDS: APIXABAN 2.5 MG TAB PO SCH (22:03)
[2022-05-01] MEDS: CARVEDILOL 3.125 MG TAB PO SCH (22:04)
[2022-05-01 22:15] VITALS: BP 156/75
[2022-05-02 04:11] LABS: Basophils # (auto) 0.1 10 ^3/uL (0-0.2); Basophils % (auto) 1.4 % (0.0-2.0); Eosinophils # (auto) 0.3 10 ^3/uL (0-0.8); Hematocrit 29.3 % (36.0-46.0); Hemoglobin 9.7 g/dL (12.2-16.2); Lymphocytes # (auto) 1.2 10 ^3/uL (0.4-5.4); Lymphocytes % (auto) 20.9 % (10.0-50.0); Mean Corpuscular Hemoglobin 32.3 pg (28.0-32.0); Mean Corpuscular Hgb Conc. 33.2 g/dL (32.0-36.0); Mean Corpuscular Volume 97.3 fL (80.0-100.0); Monocytes # (auto) 1.1 10 ^3/uL (0-1.3); Neutrophils # (auto) 3.2 10 ^3/uL (1.6-8.6); Red Blood Cells 3.01 10^6/uL (4.0-5.20); Red Cell Distribution Width 15.3 % (11.8-14.3)
[2022-05-02 04:12] LABS: Monocytes % (auto) 18.7 % (0.0-12.0)
[2022-05-02 04:43] LABS: Calcium 7.9 mg/dL (8.5-10.1)
[2022-05-02 05:27] VITALS: BP 173/76
[2022-05-02] MEDS: metroNIDAZOLE 500MG/100ML 100 ML IV SCH ×2 (05:43→14:18)
[2022-05-02] MEDS ORDERED: hydrALAZINE HCL 20 MG/ML VL IV PRN (05:45)
[2022-05-02 08:30] VITALS: BP 147/77
[2022-05-02] MEDS: cefTRIAXone 1GM/50ML D5W 50 ML IV SCH (09:46)
[2022-05-02] MEDS: APIXABAN 2.5 MG TAB PO SCH (09:47)
[2022-05-02] MEDS: CARVEDILOL 3.125 MG TAB PO SCH (09:47)
[2022-05-02] MEDS: FAMOTIDINE 20 MG TAB PO SCH (09:47)
[2022-05-02] MEDS ORDERED: BACDST PO (09:48)
[2022-05-02] MEDS ORDERED: CEL100T PO (09:48)
[2022-05-02] MEDS ORDERED: ACET-1304 PO (09:48)
[2022-05-02] MEDS ORDERED: ENOXAPARIN SOD 40 MG/0.4 ML SYRINGE SC SCH (10:00)
[2022-05-02] MEDS ORDERED: amLODIPine BESYLATE 5 MG TAB PO SCH (10:00)
[2022-05-02 11:54] VITALS: BP 147/66
[2022-05-02] MEDS ORDERED: LEVO-28 PO (16:02)
[2022-05-02 16:04] VITALS: BP 147/77
== END 2022-05-02 16:30 | disposition home health service (06) | DRG 551 ==
LOC: EDBD 06:41 → ER 06:41 → TELE-CENTR 17:32
PROVIDERS: ADMIT Hospitalist; ATTEND Hospitalist
DX: M47.816 Spondylosis without myelopathy or radiculopathy, lumbar region (principal); N17.0 Acute kidney failure with tubular necrosis; M81.0 Age-related osteoporosis without current pathological fracture; I11.9 Hypertensive heart disease without heart failure; M51.36 Other intervertebral disc degeneration, lumbar region; Z96.659 Presence of unspecified artificial knee joint; F32.A Depression, unspecified; K21.9 Gastro-esophageal reflux disease without esophagitis; R26.2 Difficulty in walking, not elsewhere classified; Z20.822 Contact with and (suspected) exposure to COVID-19; Z82.49 Family history of ischemic heart disease and other diseases of the circulatory system; Z83.3 Family history of diabetes mellitus; Z85.3 Personal history of malignant neoplasm of breast; Z87.11 Personal history of peptic ulcer disease
CPT/HCPCS: 36415; 70450; 70551; 71045; 72131; 72148; 80048; 80053; 81001; 82306; 82570; 83735; 84100; 84156; 84300; 84443; 84550; 85025; 85610; 85730; 87077; 87186; 87205; 87426; 93005; 93970; 96361; 96374; 97163; G0378; J0696; J1885; J3490

== ENCOUNTER 2023-08-25 10:48 | Emergency (ER) | payer OTHER ==
[~2023-08-25] VITALS: Ht 167.6 cm; Wt 70.0 kg
[~2023-08-25 10:48] MED LIST changes: +ACET-1304 PO; -AMLO-496 PO; +AMLO1TAB22 PO; +AMLO1TAB23 PO; +ATO40T PO; +CARV3.1240 PO; +CEL100T PO; +FLUO-125 PO; +LEV100T PO; +LEVO500T91 PO; -LOSA-69 PO; +LOSA50TA46 PO
[2023-08-25 11:31] LABS: Anion Gap 7 (5-15); Carbon Dioxide 24 mmol/L (20-30); Chloride 107 mmol/L (98-107); Potassium 4.6 mmol/L (3.5-5.1); Sodium 138 mmol/L (136-145)
[2023-08-25 11:32] LABS: Calcium 9.9 mg/dL (8.5-10.1)
[2023-08-25 11:33] LABS: Eosinophils # (auto) 0.5 10 ^3/uL (0-0.8); Hemoglobin 11.9 g/dL (12.2-16.2); Lymphocytes # (auto) 1.5 10 ^3/uL (0.4-5.4); Lymphocytes % (auto) 27.4 % (10.0-50.0); Monocytes # (auto) 0.6 10 ^3/uL (0-1.3); Red Cell Distribution Width 15.6 % (11.8-14.3); White Blood Cell 5.6 10^3/uL (4.4-10.8)
[2023-08-25 11:37] LABS: Blood Urea Nitrogen 33 mg/dL (9-23); Glucose 95 mg/dL (74-106)
[2023-08-25 11:38] LABS: Basophils # (auto) 0.1 10 ^3/uL (0-0.2); Basophils % (auto) 1.3 % (0.0-2.0); Eosinophils % (auto) 9.5 % (0.0-7.0); Hematocrit 36.6 % (36.0-46.0); Mean Corpuscular Hemoglobin 34.3 pg (28.0-32.0); Mean Corpuscular Hgb Conc. 32.5 g/dL (32.0-36.0); Mean Corpuscular Volume 105.6 fL (80.0-100.0); Monocytes % (auto) 10.8 % (0.0-12.0); Neutrophils # (auto) 2.8 10 ^3/uL (1.6-8.6); Nucleated Red Blood Cells % 0.1 %; Red Blood Cells 3.46 10^6/uL (4.0-5.20)
[2023-08-25] MEDS ORDERED: CEPH250C PO (13:29)
[2023-08-25 14:24] VITALS: BP 138/76; PULSE 84; RESP 15; TEMP 98; O2SAT 98
== END 2023-08-25 14:25 | disposition home or self-care (01) ==
LOC: ER 10:48
DX: N39.0 Urinary tract infection, site not specified (principal); I10 Essential (primary) hypertension; E78.5 Hyperlipidemia, unspecified; K21.9 Gastro-esophageal reflux disease without esophagitis; F32.9 Major depressive disorder, single episode, unspecified; Z85.9 Personal history of malignant neoplasm, unspecified; Z88.8 Allergy status to other drugs, medicaments and biological substances; Z79.899 Other long term (current) drug therapy
CPT/HCPCS: 36415; 80048; 81002; 85025